=== PATIENT | male | born 1955 | race Caucasian/White ===

== ENCOUNTER → 2016-04-11 | Outpatient (CLI) | payer BC | LOC: M WUC 13:25 | PROVIDERS: ATTEND Urology | DX: N52.31 Erectile dysfunction following radical prostatectomy (principal) ==

== ENCOUNTER → 2017-04-13 | Outpatient (CLI) | payer BC ==
[2017-04-13 12:47] LABS: PROSTATIC SPECIFIC AG MONITOR < 0.01 NG/ML (< 4.0)
== END ==
LOC: M WUC 10:06
DX: Z85.46 Personal history of malignant neoplasm of prostate (principal)

== ENCOUNTER → 2018-04-11 | Outpatient (CLI) | payer BC | LOC: M WUC 17:04 | PROVIDERS: ATTEND Urology | DX: Z85.46 Personal history of malignant neoplasm of prostate (principal) ==

== ENCOUNTER → 2019-01-26 | Day surgery (SDC) | payer BC ==
[~2019-01-26] VITALS: Ht 182.9 cm; Wt 100.2 kg
[~2019-01-26] MED LIST: ASPI81TA85 PO; LIDOCAINE 2% INJ 100 MG/5 ML SDV (FOR ANES.) As Ordered ONE; NS 1,000 ML IV SCH; PROPOFOL 200 MG/20 ML VIAL As Ordered ONE
--- NOTE | 2019-01-26 14:36 | ROOR ---
Patient Name: Narinder Briseno Procedure Date: 01/26/2019 2:19 PM Date of : 1955 Age: 63 Room: [facility] Gender: Male Note Status: Finalized Procedure: Colonoscopy Indications: Screening for colorectal malignant neoplasm Providers: Jimi Mckeon Jr, MD Referring MD: RODRIGO NGUYEN DO Requesting Provider: Medicines: Propofol per Anesthesia Complications: No immediate complications. Procedure: Pre-Anesthesia Assessment: - Prior to the procedure, a History and Physical was performed, and patient medications and allergies were reviewed. The patient is competent. The risks and benefits of the procedure and the sedation options and risks were discussed with the patient. All questions were answered and informed consent was obtained. Patient identification and proposed procedure were verified by the physician and the nurse in the pre-procedure area and in the procedure room. Mental Status Examination: alert and oriented. Airway Examination: normal oropharyngeal airway and neck mobility. Respiratory Examination: clear to auscultation. CV Examination: normal. ASA Grade Assessment: II - A patient with mild systemic disease. After reviewing the risks and benefits, the patient was deemed in satisfactory condition to undergo the procedure. The anesthesia plan was to use moderate sedation / analgesia (conscious sedation). Immediately prior to administration of medications, the patient was re-assessed for adequacy to receive sedatives. The heart rate, respiratory rate, oxygen saturations, blood pressure, adequacy of pulmonary ventilation, and response to care were monitored throughout the procedure. The physical status of the patient was re-assessed after the procedure. The Colonoscope was introduced through the anus and advanced to the cecum, identified by appendiceal orifice and ileocecal valve. The colonoscopy was performed without difficulty. The patient tolerated the procedure well. The quality of the bowel preparation was adequate. Findings: The rectum, recto-sigmoid colon, sigmoid colon, descending colon, transverse colon, ascending colon, cecum, appendiceal orifice and ileocecal valve appeared normal. Impression: - The rectum, recto-sigmoid colon, sigmoid colon, descending colon, transverse colon, ascending colon, cecum, appendiceal orifice and ileocecal valve are normal. - No specimens collected. Recommendation: - Discharge patient to home (ambulatory). - Repeat colonoscopy in 10 years for screening purposes. Jimi Mckeon MD Jimi Mckeon Jr, MD 01/26/2019 2:35:23 PM Electronically signed by Jimi Mckeon Jr, MD Number of Addenda: 0 Note Initiated On: 01/26/2019 2:19 PM Estimated Blood Loss: Estimated blood loss: none.
[2019-01-26 15:05] VITALS: BP 114/69
== END | disposition home or self-care (01) ==
LOC: M OPP 12:40
PROVIDERS: ATTEND Surgery
DX: Z12.11 Encounter for screening for malignant neoplasm of colon (principal); Z79.82 Long term (current) use of aspirin

== ENCOUNTER → 2019-03-16 | Outpatient (CLI) | payer BC ==
[~2019-03-16] MED LIST changes: -LIDOCAINE 2% INJ 100 MG/5 ML SDV (FOR ANES.) As Ordered ONE; -NS 1,000 ML IV SCH; -PROPOFOL 200 MG/20 ML VIAL As Ordered ONE
== END ==
LOC: M WUC 16:12
PROVIDERS: ATTEND Physician Assistant
DX: C61 Malignant neoplasm of prostate (principal)

== ENCOUNTER → 2020-03-15 | Outpatient (CLI) | payer BC ==
[~2020-03-15] MED LIST changes: -ASPI81TA85 PO; +ASPI81TA86 PO
== END ==
LOC: M WUC 11:22
PROVIDERS: ATTEND Physician Assistant
DX: C61 Malignant neoplasm of prostate (principal)
CPT/HCPCS: 36415; G0103

== ENCOUNTER → 2021-03-20 | Outpatient (CLI) | payer BC | LOC: M WUC 10:17 | DX: Z85.46 Personal history of malignant neoplasm of prostate (principal) ==

== ENCOUNTER → 2022-03-25 | Outpatient (REF) | payer BC ==
[2022-03-27 23:07] LABS: PSA TOTAL <0.1 ng/mL (0.0-4.0)
== END ==
LOC: M LABWUC 16:11
PROVIDERS: ATTEND Physician Assistant
DX: Z85.46 Personal history of malignant neoplasm of prostate (principal)

== ENCOUNTER → 2023-04-02 | Outpatient (REF) | payer MEDICARE, BC | LOC: M LABWUC 17:44 | PROVIDERS: ATTEND Physician Assistant | DX: Z85.46 Personal history of malignant neoplasm of prostate (principal) ==

== ENCOUNTER → 2023-12-07 | Outpatient (CLI) | payer MEDICARE, BC ==
[2023-12-07 11:57] LABS: HEMATOCRIT 41.7 % (42.0-52.0); HEMOGLOBIN 14.2 g/dl (13.5-17.5); MEAN CORPUSCULAR HEMOGLOBIN 29.8 pg (27.0-33.0); MEAN CORPUSCULAR HGB CONC 34.1 g/dl (32.0-36.5); MEAN CORPUSCULAR VOLUME 87.4 fl (80.0-96.0); PLATELET COUNT, AUTOMATED 405 10^3/uL (150-450); RED BLOOD COUNT 4.77 10^6/uL (4.30-6.10); WHITE BLOOD COUNT 7.2 10^3/uL (4.0-10.0)
[2023-12-07 12:31] LABS: ALBUMIN 3.6 G/DL (3.2-5.2); ALKALINE PHOSPHATASE 73 U/L (46-116); ALT/SGPT 24 U/L (7.0-40); AST/SGOT 15 U/L (<34); BILIRUBIN,TOTAL 1.3 MG/DL (0.3-1.2); BLOOD UREA NITROGEN 21 MG/DL (9-23); CALCIUM LEVEL 9.4 MG/DL (8.3-10.6); CARBON DIOXIDE LEVEL 27 MMOL/L (20-31); CHLORIDE LEVEL 108 MMOL/L (98-107); CHOLESTEROL LEVEL 195 MG/DL (<200); CHOLESTEROL RISK RATIO 2.93 (<5); CREATININE FOR GFR 0.86 MG/DL (0.70-1.30); GLOMERULAR FILTRATION RATE > 60.0 (>49); GLUCOSE, FASTING 97 MG/DL (74-106); HDL CHOLESTEROL 66.4 MG/DL (>40); LDL CHOLESTEROL 117.6 MG/DL (<100); NON-HDL-C 128.6 MG/DL; SODIUM LEVEL 139 MMOL/L (136-145); THYROID STIMULATING HORMONE 1.794 uIU/ML (0.55-4.78); TOTAL PROTEIN 7.3 G/DL (5.7-8.2); TRIGLYCERIDES LEVEL 55 MG/DL (<150)
== END ==
LOC: M WUC 10:01
PROVIDERS: ATTEND Physician Assistant
DX: E78.5 Hyperlipidemia, unspecified (principal); D69.6 Thrombocytopenia, unspecified; C61 Malignant neoplasm of prostate

== ENCOUNTER → 2024-04-03 | Outpatient (CLI) | payer MEDICARE, BC | LOC: M WUC 10:39 | PROVIDERS: ATTEND Physician Assistant | DX: Z85.46 Personal history of malignant neoplasm of prostate (principal) ==

== ENCOUNTER → 2024-09-02 | Outpatient (REF) | payer MEDICARE, BC | LOC: M LAB REF 20:35 | PROVIDERS: ATTEND Physician Assistant | DX: J06.9 Acute upper respiratory infection, unspecified (principal) ==

== ENCOUNTER 2024-09-03 10:46 | Emergency (ER) | payer MEDICARE, BC ==
[~2024-09-03] VITALS: Ht 182.9 cm; Wt 94.0 kg
[2024-09-03 11:25] LABS: KETONE, URINE AUTO RFX NEGATIVE (NEGATIVE); LEUKOCYTE ESTERASE UR AUTO RFX NEGATIVE (NEGATIVE); MUCUS, URINE RFX SMALL (NEGATIVE); NITRITE, URINE AUTO RFX NEGATIVE (NEGATIVE); RBC, URINE AUTO RFX 2 /HPF (0-3); SQUAM EPITHELIAL CELL UR AURFX 0 /HPF (0-6); WBC, URINE AUTO RFX 2 /HPF (0-3)
[2024-09-03] MEDS ORDERED: ISOVUE-370 76% 100 ML VIAL As Ordered ONE (11:57)
[2024-09-03] MEDS: ACETAMINOPHEN 325 MG TAB PO ONE (12:16)
[2024-09-03] MEDS: NS (Normal Saline) 0.9% 1,000 ML IV ONE (12:16)
[2024-09-03 12:34] LABS: BASO # 0.0 10^3/uL (0.0-0.2); BASO % 0.7 % (0.0-1.0); EOS # 0.0 10^3/uL (0.0-0.5); EOS % 0.0 % (0.0-3.0); LYMPH # 0.6 10^3/uL (1.5-5.0); LYMPH % 14.8 % (24.0-44.0); MONO # 0.2 10^3/uL (0.0-0.8); MONO % 4.7 % (2.0-8.0); NEUTROPHILS # 3.4 10^3/uL (1.5-8.5); NEUTROPHILS % 79.6 % (36.0-66.0); PLATELET COUNT, AUTOMATED 288 10^3/uL (150-450)
[2024-09-03 12:42] LABS: INR 1.06
[2024-09-03 13:01] LABS: ALT/SGPT 87.0 U/L (7.0-40); AST/SGOT 82.0 U/L (<34); CALCIUM LEVEL 9.0 MG/DL (8.3-10.6); CARBON DIOXIDE LEVEL 26.0 MMOL/L (20-31); CHLORIDE LEVEL 101.0 MMOL/L (98-107); CREATININE FOR GFR 0.94 MG/DL (0.70-1.30); GLOMERULAR FILTRATION RATE 88.3 (>49); POTASSIUM SERUM 3.9 MMOL/L (3.5-5.1); SODIUM LEVEL 139.0 MMOL/L (136-145)
[2024-09-03 13:09] LABS: C REACTIVE PROTEIN QUANTITATIV 13.34 MG/DL (<1.0)
[2024-09-03 14:21] VITALS: BP 118/69; TEMP 97.6; O2SAT 97
== END 2024-09-03 14:34 | disposition home or self-care (01) ==
LOC: M ED 10:46
DX: R50.9 Fever, unspecified (principal); R94.31 Abnormal electrocardiogram [ECG] [EKG]; C61 Malignant neoplasm of prostate; Z79.1 Long term (current) use of non-steroidal anti-inflammatories (NSAID)
CPT/HCPCS: 70450; 70496; 70498; 71045; 80047; 80048; 80076; 81001; 82150; 83605; 84145; 85025; 85610; 85730; 86140; 86618; 86666; 86757; 87207; 87469; 87486; 87581; 87633; 87798; 93005; 96360; 96361; 99284; Q9967

== ENCOUNTER → 2024-09-25 | Outpatient (CLI) | payer MEDICARE, BC ==
[2024-09-25 14:07] LABS: BASO # 0.1 10^3/uL (0.0-0.2); BASO % 1.5 % (0.0-1.0); EOS # 0.2 10^3/uL (0.0-0.5); EOS % 3.8 % (0.0-3.0); LYMPH # 3.5 10^3/uL (1.5-5.0); LYMPH % 58.8 % (24.0-44.0); MONO # 0.8 10^3/uL (0.0-0.8); MONO % 13.8 % (2.0-8.0); NEUTROPHILS # 1.3 10^3/uL (1.5-8.5); NEUTROPHILS % 21.9 % (36.0-66.0); PLATELET COUNT, AUTOMATED 514 10^3/uL (150-450)
[2024-09-25 14:12] LABS: C REACTIVE PROTEIN QUANTITATIV < 0.50 MG/DL (<1.0)
[2024-09-25 14:13] LABS: ERYTHROCYTE SEDIMENTATION RATE 48 mm/hr (0-20)
[2024-09-25 14:14] LABS: ALT/SGPT 32 U/L (7.0-40); AST/SGOT 23 U/L (<34); CALCIUM LEVEL 9.4 MG/DL (8.3-10.6); CARBON DIOXIDE LEVEL 27 MMOL/L (20-31); CHLORIDE LEVEL 104 MMOL/L (98-107); CREATININE FOR GFR 0.80 MG/DL (0.70-1.30); GLOMERULAR FILTRATION RATE > 90.0 (>49); POTASSIUM SERUM 4.6 MMOL/L (3.5-5.1); SODIUM LEVEL 140 MMOL/L (136-145)
[2024-09-28 15:32] LABS: LYME TOTAL ANTIBODY CIA 4.25 Index (<=0.90)
[2024-09-28 18:47] LABS: LYME AB IGG BY CIA 4.89 Index (<=0.90); LYME AB IGM BY CIA 4.88 Index (<=0.90)
== END ==
LOC: M PLALAB 10:21
PROVIDERS: ATTEND Internal Medicine Infectious Disease
DX: A69.20 Lyme disease, unspecified (principal)

== ENCOUNTER → 2024-12-08 | Outpatient (CLI) | payer MEDICARE, BC ==
[2024-12-08 12:53] LABS: PLATELET COUNT, AUTOMATED 428 10^3/uL (150-450)
[2024-12-08 13:00] LABS: ALT/SGPT 23 U/L (7.0-40); AST/SGOT 21 U/L (<34); CALCIUM LEVEL 9.4 MG/DL (8.3-10.6); CARBON DIOXIDE LEVEL 26 MMOL/L (20-31); CHLORIDE LEVEL 107 MMOL/L (98-107); CHOLESTEROL LEVEL 198 MG/DL (<200); CHOLESTEROL RISK RATIO 2.83 (<5); CREATININE FOR GFR 0.85 MG/DL (0.70-1.30); GLOMERULAR FILTRATION RATE > 90.0 (>49); LDL CHOLESTEROL 118.5 MG/DL (<100); NON-HDL-C 128.1 MG/DL; POTASSIUM SERUM 4.4 MMOL/L (3.5-5.1); SODIUM LEVEL 142 MMOL/L (136-145); TRIGLYCERIDES LEVEL 48 MG/DL (<150)
== END ==
LOC: M WUC 09:51
PROVIDERS: ATTEND Physician Assistant
DX: E78.5 Hyperlipidemia, unspecified (principal); M75.01 Adhesive capsulitis of right shoulder; D69.6 Thrombocytopenia, unspecified; C61 Malignant neoplasm of prostate; M19.012 Primary osteoarthritis, left shoulder